=== PATIENT | male | born 1945 | race Two or more races ===

== ENCOUNTER 2018-03-28 21:37 | Inpatient (IN) | payer MEDICARE, OTHER ==
[~2018-03-28] VITALS: Ht 165.1 cm; Wt 64.4 kg
[~2018-03-28 21:37] MED LIST: AMLO10TA2 PO; ASPI-495 PO; ATOR80TA PO; CARV25TA2 PO; FURO-144 PO; HYDR100T27 PO; INSU100V27 SQ; ISOS30TA7 PO; LORA10TA7 PO; LOSA25TA3 PO
[2018-03-28] MEDS ORDERED: IV NS 0.9% 1,000 ML BAG IV ONE (22:00)
[2018-03-28 22:23] LABS: BASOPHILS % (AUTO) 0.1 % (0.0-2.0); HEMATOCRIT 45 % (39-51); LYMPHOCYTES # (AUTO) 0.4 /CMM (0.8-4.8); LYMPHOCYTES % (AUTO) 6.9 % (20.0-44.0); MEAN CORPUSCULAR HEMOGLOBIN 30 PG (26.0-33.0); MEAN CORPUSCULAR HGB CONC 33 g/dl (31.0-36.0); MEAN CORPUSCULAR VOLUME 91 fL (80-96); MONOCYTES # (AUTO) 0.1 /CMM (0.1-1.30); MONOCYTES % (AUTO) 1.7 % (2.0-12.0); NEUTROPHILS # (AUTO) 5.1 /CMM (1.8-8.9); NEUTROPHILS % (AUTO) 91.3 % (43.0-81.0); PLATELET COUNT (AUTO) 210 /CMM (150-450); RDW COEFFICIENT OF VARIATION 14.1 (11.5-15.0); RED BLOOD CELL COUNT(AUTO) 4.99 MIL/uL (4.5-6.0); WHITE BLOOD COUNT (AUTO) 5.6 K/uL (4.3-11.0)
[2018-03-28 22:39] LABS: ALANINE AMINOTRANSFERASE 86 U/L (12-78); ALBUMIN 4.6 g/dL (3.4-5.0); ALKALINE PHOSPHATASE 125 U/L (46-116); ASPARTATE AMINOTRANSFERASE 50 U/L (15-37); BILIRUBIN,DIRECT 0.2 mg/dL (0.0-0.2); BILIRUBIN,TOTAL 0.9 mg/dL (0.2-1.0); CALCIUM, SERUM 9.5 mg/dL (8.5-10.1); CARBON DIOXIDE 26 mmol/L (21-32); CHLORIDE 97 mmol/L (98-107); CREATININE 2.1 mg/dL (0.6-1.3); POTASSIUM 4.2 mmol/L (3.5-5.1); SODIUM SERUM 134 mmol/L (136-145); TOTAL PROTEIN, SERUM 9.5 g/dL (6.4-8.2); UREA NITROGEN, BLOOD 46 mg/dL (7-18)
[2018-03-28 22:40] LABS: GLUCOSE 393 mg/dL (74-106)
--- NOTE | 2018-03-28 22:40 | NUR ---
BBRA; "PER FAMILY, NOT EATING WELL THE PAST FEW DAYS, FEELING ILL NOW". PT STABLE, DENIES CP, SOB, DIZZINESS, [place], N/V, CHILLS @ THIS TIME. PT C/O ABD PAIN 01/06, JUNO WELL NOW. PT ON TELE, NSR. PT RESTING COMFORTABLY & WILL CONT TO MONITOR.
[2018-03-28 22:41] LABS: TROPONIN I < 0.017 ng/mL (0.00-0.056)
[2018-03-28] MEDS ORDERED: ONDANSETRON HCL/PF - ER 4 MG/2 ML VIAL IV ONE (23:00)
[2018-03-28] MEDS ORDERED: INSULIN REGULAR, HUMAN 100 UNIT/ML 10 ML VIAL IV ONE (23:00)
[2018-03-28] MEDS ORDERED: ONDANSETRON HCL/PF 4 MG/2 ML VIAL ONE (23:12)
[2018-03-28] MEDS ORDERED: INSULIN REGULAR, HUMAN 100 UNIT/ML 10 ML VIAL ONE (23:14)
--- NOTE | 2018-03-28 23:28 | NUR ---
PT EVAL'D BY DR. MCKEON. MEDICATED PER MD. PT RESTING COMFORTBLY, NO RESP DISTRESS NOTED @ THIS TIME. WILL CONT TO MONITOR.
--- NOTE | 2018-03-28 23:50 | NUR ---
RECEIVED REPORT FROM MALLORY ZARAGOZA.
[2018-03-28 23:52] LABS: APPEARANCE,URINE CLEAR (CLEAR); BILIRUBIN,URINE NEGATIVE (NEGATIVE); BLOOD, URINE TRACE-INTA Ery/uL (NEGATIVE); COLOR,URINE YELLOW (YELLOW); KETONES,URINE TRACE (NEGATIVE); LEUKOCYTE ESTERASE ,URINE NEGATIVE (NEGATIVE); NITRITE, URINE NEGATIVE (NEGATIVE); PROTEIN,URINE 2+ mg/dl (NEGATIVE); UGLUCOSE 3+ mg/dL (NEGATIVE); UROBILINOGEN,URINE 0.2 EU/dL (0.2)
--- NOTE | 2018-03-28 23:55 | NUR ---
Patient is resting comfortably in bed with eyes closed. Easily aroused. STABLE CONDITION. SAFETY MEASURES IN PLACE. CALL LIGHT WITHIN REACH.
[2018-03-29] VITALS (9 sets, daily range): BP systolic 117–187; BP diastolic 62–90
[2018-03-29 00:02] LABS: BACTERIA,URINE Rare /HPF (None Seen); SQUAMOUS EPITHELIAL CELL,UR Rare /HPF (None Seen)
--- NOTE | 2018-03-29 00:33 | NUR ---
LAB AT BEDSIDE FOR TROPONIN DRAW. TECH AT BEDSIDE FOR BLOOD SUGAR CHECK
[2018-03-29] MEDS ORDERED: IV NS 0.9% 1,000 ML IV PRN (01:33)
[2018-03-29] MEDS ORDERED: NITROGLYCERIN PACKET 1 GM PACKET ONE (01:43)
[2018-03-29] MEDS ORDERED: ASPIRIN 81 MG TAB.CHEW ONE (01:43)
[2018-03-29] MEDS ORDERED: NITROGLYCERIN 0.4 MG/TAB BOTTLE ONE (01:43)
--- NOTE | 2018-03-29 01:46 | NUR ---
REPORT GIVEN TO MARISSA CEJA.
[2018-03-29] MEDS ORDERED: MORPHINE SULFATE INJ 2 MG/ML DISP.SYRIN IV PRN (02:00)
[2018-03-29] MEDS ORDERED: NITROGLYCERIN PACKET 1 GM PACKET TD ONE (02:00)
[2018-03-29] MEDS ORDERED: NITROGLYCERIN 0.4 MG/TAB BOTTLE SL PRN (02:00)
[2018-03-29] MEDS ORDERED: MAG HYDROX/AL HYDROX/SIMETH 30 ML UDC PO PRN (02:00)
[2018-03-29] MEDS ORDERED: ASPIRIN 81 MG TAB.CHEW PO ONE (02:00)
[2018-03-29] MEDS ORDERED: DEXTROSE 50%-WATER 50 ML DISP.SYRIN IV PRN (02:00)
[2018-03-29] MEDS ORDERED: Z GUARD REMEDY 2 OZ OINT TP PRN (02:00)
[2018-03-29] MEDS ORDERED: ACETAMINOPHEN 325 MG TABLET PO PRN (02:00)
--- NOTE | 2018-03-29 02:30 | NUR ---
recieved from the er a/ox4 palestinian speaking Le the corrections sergeant at the bedside and able to interpret for me. pt is smiling and cooperative. denies pain.
--- NOTE | 2018-03-29 02:48 | NUR ---
TRANSP TO MED/SURG STABLE CONDITION. NAD
[2018-03-29] MEDS: BLOOD SUGAR DIAGNOSTIC 1 EACH STRIP IN SCH ×4 (06:37→22:37)
[2018-03-29] MEDS: INSULIN REGULAR, HUMAN 100 UNIT/ML 3 ML VIAL SQ PRN ×2 (06:42→12:39)
[2018-03-29 07:24] LABS: HEMATOCRIT 41 % (39-51); HEMOGLOBIN 13.6 g/dL (13.5-17.5); LYMPHOCYTES # (AUTO) 0.4 /CMM (0.8-4.8); LYMPHOCYTES % (AUTO) 6.7 % (20.0-44.0); MEAN CORPUSCULAR HEMOGLOBIN 30 PG (26.0-33.0); MEAN CORPUSCULAR HGB CONC 33 g/dl (31.0-36.0); MEAN CORPUSCULAR VOLUME 90 fL (80-96); MONOCYTES # (AUTO) 0.2 /CMM (0.1-1.30); MONOCYTES % (AUTO) 2.9 % (2.0-12.0); NEUTROPHILS # (AUTO) 5.1 /CMM (1.8-8.9); NEUTROPHILS % (AUTO) 90.4 % (43.0-81.0); PLATELET COUNT (AUTO) 217 /CMM (150-450); RDW COEFFICIENT OF VARIATION 14.1 (11.5-15.0); RED BLOOD CELL COUNT(AUTO) 4.55 MIL/uL (4.5-6.0); WHITE BLOOD COUNT (AUTO) 5.6 K/uL (4.3-11.0)
--- NOTE | 2018-03-29 07:37 | NUR ---
RN OPENING NOTES RECEIVED PATIENT IN BED RESTING, AWAKE, A/OX3, TANZANIAN SPEAKING BUT ABLE TO UNDERSTAND BASIC SWEDISH. TOLERATING ROOM AIR, SPO2 96%. NO ACUTE DISTRESS, NO SOB, DENIED PAIN OR DISCOMFORT. ON TELEMONITORING, SR WITH BBB, HR 82. IV SITE INTACT AND PATENT, IVF INFUSING AT 50 ML/HR. KEPT PATIENT SAFE AND COMFORTABLE. BED IN LOW/LOCKED POSITION, SIDERAILS UPX2, CALL LIGHT IN REACH. WILL CONTINUE TO MONITOR ACCORDINGLY. Addendum: 03/29/18 at 0754 by DAWN CHOI BED ALARM ON FOR SAFETY
[2018-03-29 07:40] LABS: ALANINE AMINOTRANSFERASE 75 U/L (12-78); ALKALINE PHOSPHATASE 111 U/L (46-116); ASPARTATE AMINOTRANSFERASE 46 U/L (15-37); BILIRUBIN,DIRECT 0.1 mg/dL (0.0-0.2); BILIRUBIN,TOTAL 0.6 mg/dL (0.2-1.0); CALCIUM, SERUM 8.5 mg/dL (8.5-10.1); CARBON DIOXIDE 24 mmol/L (21-32); CHLORIDE 101 mmol/L (98-107); CREATININE 1.7 mg/dL (0.6-1.3); GLUCOSE 312 mg/dL (74-106); MAGNESIUM 2.1 mg/dL (1.8-2.4); PHOSPHORUS 3.6 mg/dL (2.5-4.9); POTASSIUM 3.8 mmol/L (3.5-5.1); SODIUM SERUM 140 mmol/L (136-145); TOTAL PROTEIN, SERUM 8.4 g/dL (6.4-8.2); UREA NITROGEN, BLOOD 43 mg/dL (7-18)
[2018-03-29 07:42] LABS: CHOLESTEROL 279 mg/dL (<200); HDL CHOLESTEROL 40 mg/dL (40-60); LDL 187 mg/dL (0-99); THYROID STIMULATING HORMONE 0.763 uIU/mL (0.358-3.74); TRIGLYCERIDES 148 mg/dL (30-150)
--- NOTE | 2018-03-29 08:30 | NUR ---
RN NOTES NOTIFIED DR YUNG FOR CRITICAL RESULT OF TROPONIN= 0.729
[2018-03-29] MEDS: AMLODIPINE BESYLATE 10 MG TABLET PO SCH (08:51)
[2018-03-29] MEDS: LORATADINE 10 MG TABLET PO SCH (08:52)
[2018-03-29] MEDS: LOSARTAN POTASSIUM 25 MG TABLET PO SCH (08:52)
[2018-03-29] MEDS: ISOSORBIDE MONONITRATE (30MG) 30 MG TAB.SR.24H PO SCH (08:52)
[2018-03-29] MEDS: ASPIRIN EC 81 MG TABLET.DR PO SCH (08:52)
[2018-03-29] MEDS: CARVEDILOL 12.5 MG TABLET PO SCH ×2 (08:53→21:08)
[2018-03-29] MEDS: hydrALAZINE HCL 50 MG TABLET PO SCH ×3 (08:54→17:00)
[2018-03-29] MEDS: ATORVASTATIN 40 MG TABLET PO SCH (08:55)
[2018-03-29] MEDS: ONDANSETRON HCL/PF 4 MG/2 ML VIAL IVP PRN (09:30)
[2018-03-29] MEDS: INSULIN ASPART/LISPRO 100 UNIT/ML CARTRIDGE SQ SCH ×3 (10:02→17:10)
[2018-03-29] MEDS: ENOXAPARIN SODIUM 30 MG/0.3 ML DISP.SYRIN SQ SCH (11:11)
[2018-03-29 11:17] LABS: MAGNESIUM 2.1 mg/dL (1.8-2.4)
[2018-03-29 11:28] LABS: THYROID STIMULATING HORMONE 0.787 uIU/mL (0.358-3.74)
[2018-03-29] MEDS: IV NS 0.9% 1,000 ML IV PRN ×2 (12:33→16:01)
--- NOTE | 2018-03-29 19:30 | NUR ---
RN CLOSING NOTES PATIENT IN STABLE CONDITION. ALL NEEDS ATTENDED AND PROVIDED. ALL DUE MEDS GIVEN ORDERED. NS IVF FLUIDS INFUSING AT 125ML/HR ORDERED. KEPT PATIENT SAFE AND COMFORTABLE. BED IN LOW/LOCKED POSITION, SIDERAILS UPX2, SEMIFOWLERS POSITION, BED ALARM ON FOR SAFETY, CALL LIGHT IN REACH. ENDORSED TO NIGHT RN FOR YUDITH.
[2018-03-30] VITALS (7 sets, daily range): BP systolic 96–176; BP diastolic 54–86
[2018-03-30] MEDS: IV NS 0.9% 1,000 ML IV PRN ×2 (01:46→16:21)
[2018-03-30] MEDS: BLOOD SUGAR DIAGNOSTIC 1 EACH STRIP IN SCH ×4 (06:43→21:30)
[2018-03-30] MEDS: INSULIN ASPART/LISPRO 100 UNIT/ML CARTRIDGE SQ SCH ×3 (06:43→13:31)
--- NOTE | 2018-03-30 06:44 | NUR ---
RN NOTES PATIENT WITH BLOOD SUGAR OF 211. HELD INSULIN DOSE DUE TO PATIENT WITH POOR APETITE.
[2018-03-30 07:00] LABS: EOSINOPHILS % (AUTO) 0.2 % (0.0-6.0); HEMATOCRIT 41 % (39-51); HEMOGLOBIN 13.7 g/dL (13.5-17.5); LYMPHOCYTES # (AUTO) 0.6 /CMM (0.8-4.8); LYMPHOCYTES % (AUTO) 6.3 % (20.0-44.0); MEAN CORPUSCULAR HEMOGLOBIN 30 PG (26.0-33.0); MEAN CORPUSCULAR HGB CONC 33 g/dl (31.0-36.0); MEAN CORPUSCULAR VOLUME 90 fL (80-96); MONOCYTES # (AUTO) 0.3 /CMM (0.1-1.30); MONOCYTES % (AUTO) 3.5 % (2.0-12.0); NEUTROPHILS # (AUTO) 8.4 /CMM (1.8-8.9); PLATELET COUNT (AUTO) 208 /CMM (150-450); RED BLOOD CELL COUNT(AUTO) 4.55 MIL/uL (4.5-6.0); WHITE BLOOD COUNT (AUTO) 9.3 K/uL (4.3-11.0)
[2018-03-30 07:21] LABS: TROPONIN I 0.339 ng/mL (0.00-0.056)
[2018-03-30 07:24] LABS: ALANINE AMINOTRANSFERASE 78 U/L (12-78); ALBUMIN 3.9 g/dL (3.4-5.0); ALKALINE PHOSPHATASE 101 U/L (46-116); ASPARTATE AMINOTRANSFERASE 39 U/L (15-37); BILIRUBIN,TOTAL 0.7 mg/dL (0.2-1.0); CALCIUM, SERUM 8.4 mg/dL (8.5-10.1); CARBON DIOXIDE 24 mmol/L (21-32); CHLORIDE 107 mmol/L (98-107); CREATININE 1.9 mg/dL (0.6-1.3); GLUCOSE 224 mg/dL (74-106); MAGNESIUM 2.4 mg/dL (1.8-2.4); PHOSPHORUS 3.6 mg/dL (2.5-4.9); POTASSIUM 3.6 mmol/L (3.5-5.1); SODIUM SERUM 143 mmol/L (136-145); UREA NITROGEN, BLOOD 62 mg/dL (7-18)
--- NOTE | 2018-03-30 08:04 | NUR ---
TELE RM OPENING NOTES RECEIVED PT FROM NIGHTSHIFT NURSE IN STABLE CONDITION. PT IS A/O X3. NO SOB OR SIGNS OF DISTRESS NOTED. BREATHING IS EVEN AND UNLABORED. HE DENIES ANY CHEST PAIN AT THIS TIME. PT IS SR ON THE TELE MONITOR WITH BBB. IV TO LEFT HAND NOTED TO BE PATENT AND INTACT. PT TOLERATING NS INFUSION WELL. BED IN LOW LOCKED POSITION, SIDE RAILS UP X2, CALL LIGHT WITHIN REACH. WILL CONTINUE TO MONITOR
[2018-03-30] MEDS: ENOXAPARIN SODIUM 30 MG/0.3 ML DISP.SYRIN SQ SCH (08:28)
[2018-03-30] MEDS: ONDANSETRON HCL/PF 4 MG/2 ML VIAL IVP PRN (08:32)
[2018-03-30] MEDS: LOSARTAN POTASSIUM 25 MG TABLET PO SCH (08:35)
[2018-03-30] MEDS: hydrALAZINE HCL 50 MG TABLET PO SCH ×3 (08:35→17:00)
[2018-03-30] MEDS: ASPIRIN EC 81 MG TABLET.DR PO SCH (08:36)
[2018-03-30] MEDS: ISOSORBIDE MONONITRATE (30MG) 30 MG TAB.SR.24H PO SCH (08:36)
[2018-03-30] MEDS: ATORVASTATIN 40 MG TABLET PO SCH (08:36)
[2018-03-30] MEDS: CARVEDILOL 12.5 MG TABLET PO SCH ×2 (08:36→21:30)
[2018-03-30] MEDS: AMLODIPINE BESYLATE 10 MG TABLET PO SCH (08:36)
[2018-03-30] MEDS: LORATADINE 10 MG TABLET PO SCH (08:37)
[2018-03-30] MEDS: HYDROCODONE/APAP 5/325MG 1 EACH TABLET PO PRN (13:33)
[2018-03-30] MEDS: INSULIN REGULAR, HUMAN 100 UNIT/ML 3 ML VIAL SQ PRN ×2 (13:40→21:35)
[2018-03-30] MEDS: NIFEdipine XL (30MG) 30 MG TAB PO SCH (17:00)
--- NOTE | 2018-03-30 18:48 | NUR ---
MS RN CLOSING NOTES PT REMAINS STABLE. ALL NEEDS MET DURING SHIFT AND ORDERS CARRIED OUT ACCORDINGLY. ALL DUE MEDS GIVEN. VITALS REMAIN STABLE PT CONTINUES TO TOLERATE NS IN FUSION WELL. WILL ENDORSE TO NIGHTSHIFT NURSE FOR YUDITH
--- NOTE | 2018-03-30 20:12 | NUR ---
MS PR INTERN INITIAL NOTES RECEIVED PT IN BED RESTING WITH EYES CLOSED BUT AROUSE TO TOUCH, DENIES ANY PAIN OR ANY DISCOMFORT. WITH IVF OF NS AT 125 ML/HR AT THIS TIME. AWARE WHERE HE AT AND HOW TO USED THE CALL LIGHT SYSTEM. KEPT HIM WARM AND COMFORTABLE AT ALL TIMES. PLACE CALL LIGHT AT REACH. FAMILY AT THE BEDSIDE. WILL CONTINUE MONITORING.
[2018-03-30] MEDS: MAGNESIUM HYDROXIDE 30 ML UDC PO PRN (21:37)
--- NOTE | 2018-03-30 21:40 | NUR ---
ms manager of revenue notes blood sugar 155 , 2 units of insulin given as ordered, no signs of hyper glycemia noted. routine meds given and MOM as well. pt tolerated well. pt still on IVF NS infusing at this time. snacks also served. will continue monitoring.
--- NOTE | 2018-03-31 | NUR ---
emergency generator mechanic notes pt sleeping comfortably in bed without any acute distress noted. respiration even and non-labored. will continue monitoring. place call light at reach.
[2018-03-31] MEDS: IV NS 0.9% 1,000 ML IV PRN ×2 (00:29→12:23)
[2018-03-31] MEDS: HYDROCODONE/APAP 5/325MG 1 EACH TABLET PO PRN (03:36)
--- NOTE | 2018-03-31 03:36 | NUR ---
ms lin notes c/o abdominal pain norco tablet given, bowel sounds present but still no bowel movement. kept him comfortable and safe at all times. will re- assess later.
--- NOTE | 2018-03-31 05:06 | NUR ---
ms lin notes re-assessment checked pt he's resting comfortably in bed without any acute distress/discomfort noted.
[2018-03-31] MEDS: BLOOD SUGAR DIAGNOSTIC 1 EACH STRIP IN SCH ×4 (06:17→21:43)
[2018-03-31] MEDS: INSULIN REGULAR, HUMAN 100 UNIT/ML 3 ML VIAL SQ PRN ×2 (06:26→21:52)
--- NOTE | 2018-03-31 06:58 | NUR ---
MS FARMWORKER FIELD CROP CLOSING NOTES PT WOKE UP, BLOOD SUGAR CHECKED DONE, 194, 3UNITS OF INSULIN GIVEN HANNAH SQ ORDERED. NO SIGNS OF HYPER GLYCEMIA NOTED. DENIES ANY PAIN OR ANY DISCOMFORT. STILL NO BOWEL MOVEMENT. ALL DUE MEDS GIVEN AND ALL NEEDS MET. KEPT HIM WARM AND COMFORTABLE AT ALL TIMES. BED ALARM SET FOR SAFETY PLACE CALL LIGHT AT REACH.
[2018-03-31 07:35] LABS: BASOPHILS % (AUTO) 0.2 % (0.0-2.0); EOSINOPHILS % (AUTO) 0.2 % (0.0-6.0); HEMATOCRIT 42 % (39-51); HEMOGLOBIN 13.9 g/dL (13.5-17.5); LYMPHOCYTES # (AUTO) 0.7 /CMM (0.8-4.8); LYMPHOCYTES % (AUTO) 8.9 % (20.0-44.0); MEAN CORPUSCULAR HEMOGLOBIN 30 PG (26.0-33.0); MEAN CORPUSCULAR HGB CONC 33 g/dl (31.0-36.0); MEAN CORPUSCULAR VOLUME 90 fL (80-96); MONOCYTES # (AUTO) 0.5 /CMM (0.1-1.30); MONOCYTES % (AUTO) 6.1 % (2.0-12.0); NEUTROPHILS # (AUTO) 6.7 /CMM (1.8-8.9); NEUTROPHILS % (AUTO) 84.6 % (43.0-81.0); PLATELET COUNT (AUTO) 204 /CMM (150-450); RDW COEFFICIENT OF VARIATION 13.7 (11.5-15.0); RED BLOOD CELL COUNT(AUTO) 4.63 MIL/uL (4.5-6.0); WHITE BLOOD COUNT (AUTO) 7.9 K/uL (4.3-11.0)
[2018-03-31 07:54] LABS: TROPONIN I 0.168 ng/mL (0.00-0.056)
[2018-03-31 07:57] LABS: ALANINE AMINOTRANSFERASE 61 U/L (12-78); ALBUMIN 3.6 g/dL (3.4-5.0); ALKALINE PHOSPHATASE 93 U/L (46-116); ASPARTATE AMINOTRANSFERASE 40 U/L (15-37); BILIRUBIN,TOTAL 0.7 mg/dL (0.2-1.0); CALCIUM, SERUM 8.3 mg/dL (8.5-10.1); CARBON DIOXIDE 24 mmol/L (21-32); CHLORIDE 106 mmol/L (98-107); CREATININE 1.4 mg/dL (0.6-1.3); GLUCOSE 207 mg/dL (74-106); MAGNESIUM 2.4 mg/dL (1.8-2.4); PHOSPHORUS 2.5 mg/dL (2.5-4.9); POTASSIUM 3.3 mmol/L (3.5-5.1); SODIUM SERUM 142 mmol/L (136-145); TOTAL PROTEIN, SERUM 7.7 g/dL (6.4-8.2); UREA NITROGEN, BLOOD 42 mg/dL (7-18)
--- NOTE | 2018-03-31 07:58 | NUR ---
MS RN OPENING NOTES RECEIVED PT FROM NIGHTSHIFT NURSE IN STABLE CONDITION. PT IS A/O X3. NO SOB OR SIGNS OF DISTRESS NOTED. BREATHING IS EVEN AND UNLABORED. HE DENIES ANY CHEST PAIN AT THIS TIME. IV TO LEFT HAND NOTED TO BE PATENT AND INTACT. PT TOLERATING NS INFUSION WELL. BED IN LOW LOCKED POSITION, SIDE RAILS UP X2, CALL LIGHT WITHIN REACH. WILL CONTINUE TO MONITOR
[2018-03-31 08:00] VITALS: BP 163/70
[2018-03-31] MEDS: INSULIN ASPART/LISPRO 100 UNIT/ML CARTRIDGE SQ SCH ×3 (08:32→17:22)
[2018-03-31] MEDS: ENOXAPARIN SODIUM 30 MG/0.3 ML DISP.SYRIN SQ SCH (08:33)
[2018-03-31] MEDS: NIFEdipine XL (30MG) 30 MG TAB PO SCH ×2 (08:39→17:39)
[2018-03-31] MEDS: ASPIRIN EC 81 MG TABLET.DR PO SCH (08:39)
[2018-03-31] MEDS: CARVEDILOL 12.5 MG TABLET PO SCH ×2 (08:40→20:31)
[2018-03-31] MEDS: LORATADINE 10 MG TABLET PO SCH (08:40)
[2018-03-31] MEDS: ATORVASTATIN 40 MG TABLET PO SCH (08:40)
[2018-03-31] MEDS: ISOSORBIDE MONONITRATE (30MG) 30 MG TAB.SR.24H PO SCH (09:00)
[2018-03-31] MEDS: hydrALAZINE HCL 50 MG TABLET PO SCH ×3 (09:00→17:00)
[2018-03-31] MEDS ORDERED: POTASSIUM CHLORIDE 20 MEQ TAB.PRT.SR PO ONE (10:30)
--- NOTE | 2018-03-31 12:00 | NUR ---
MS RN NOTES: 1200 BS PT'S 1200 BLOOD SUGAR WAS 199. FAST ACTING INSULIN NOT ADMINISTERED PT DOES NOT WANT TO EAT
[2018-03-31 16:00] VITALS: BP 130/70
--- NOTE | 2018-03-31 18:47 | NUR ---
MS RN CLOSING NOTES PT REMAINS STABLE. ALL NEEDS MET DURING SHIFT AND ORDERS CARRIED OUT ACCORDINGLY. ALL DUE MEDS GIVEN. VITALS REMAIN STABLE. PT CONTINUES TO TOLERATE NS IN FUSION WELL. IV TO RIGHT FA REMAINS PATENT AND INTACT. PT INSTRUCTED THAT HE WILL BE NPO POST MIDNIGHT FOR AM STRESS TEST. HE VERBALIZED UNDERSTANDING. CONSENT OBTAINED AND PLACED IN PT'S CHART. WILL ENDORSE TO NIGHTSHIFT NURSE FOR YUDITH
--- NOTE | 2018-03-31 19:30 | NUR ---
MS TELEVISION NEWS ANCHOR INITIAL NOTES RECEIVED REPORT FROM AM NURSE AFSATU, HE'S ON BED WITH IVF OF NS AT 75ML/HR INFUSING ON HIS RIGHT FOREARM PATENT AND INTACT. RESPIRATION EVEN AND NON-LABORED, NOT IN ANY DISCOMFORT.ABDOMEN SOFT AND BOWEL SOUNDS PRESENT, STILL NO BOWEL MOVEMENT EVEN HE TOOK PRUNE JUICE AND MOM LAST NIGHT. DENIES ANY PAIN OR ANY DISCOMFORT. ENCOURAGE HIM TO USED THE CALL LIGHT SYSTEM IF HE NEEDS SOME HELPED. KEPT HIM WARM AND COMFORTABLE AT ALL TIMES. PLACE CALL LIGHT AT REACH. BED ALARM SET FOR SAFETY.
[2018-03-31 20:00] VITALS: BP 139/61
[2018-03-31] MEDS: MAGNESIUM HYDROXIDE 30 ML UDC PO PRN (20:31)
--- NOTE | 2018-03-31 21:35 | NUR ---
MS HEALTH COMMISSIONER NOTES BLOOD SUGAR 204, LANTUS 13 UNITS GIVEN HANNAH SQ WELL REGULAR INSULIN 4 UNITS, NO SIGNS OF HYPER GLYCEMIA NOTED. SNACKS ASLO SERVED. PT STILL ON IVF NS AT 75ML/HR. KEPT HIM WARM AND COMFORTABLE AT ALL TIMES. WILL CONTINUE TO MONITOR.
[2018-03-31] MEDS ORDERED: INSULIN GLARGINE, 100 UNIT/ML CARTRIDGE SQ SCH (22:00)
[2018-04-01] MEDS: HYDROCODONE/APAP 5/325MG 1 EACH TABLET PO PRN (00:10)
--- NOTE | 2018-04-01 00:17 | NUR ---
MS ALON NOTES C/O ABDOMINAL PAIN NO N/V NOTED , NORCO TABLET GIVEN WITH SIP OF WATER ORDERED. PT NPO FOR STRESS TEST IN AM . PATIENT AWARE AND UNDERSTOOD WELL. IVF STILL INFUSING AND KEPT HIM WARM AND COMFORTABLE AT ALL TIMES. PLACE CALL LIGHT AT REACH. WILL CONTINUE MONITORING.
[2018-04-01] MEDS: IV NS 0.9% 1,000 ML IV PRN (04:01)
[2018-04-01] MEDS: ONDANSETRON HCL/PF 4 MG/2 ML VIAL IVP PRN (04:19)
[2018-04-01] MEDS: BLOOD SUGAR DIAGNOSTIC 1 EACH STRIP IN SCH ×2 (06:24→12:21)
--- NOTE | 2018-04-01 06:51 | NUR ---
MS GROUP ART SUPERVISOR CLOSING NOTES PT RESTING COMFORTABLY IN BED WITHOUT ANY ACUTE DISTRESS NOTED. IVF NS AT 75ML/HR INFUSING AT THIS TIME ON HIS RIGHT FOREARM PATENT AND INTACT. PT NPO AT THIS TIME FOR HIS PROCEDURE. BLOOD SUGAR CHECKED DONE 186 NO INSULIN GIVEN BECAUSE PT NPO. KEPT HIM WARM AND COMFORTABLE AT ALL TIMES. BED ALARM SET FOR PT SAFETY. PLACE CALL LIGHT AT REACH.
[2018-04-01 07:03] LABS: BASOPHILS % (AUTO) 0.3 % (0.0-2.0); HEMATOCRIT 40 % (39-51); HEMOGLOBIN 13.3 g/dL (13.5-17.5); LYMPHOCYTES # (AUTO) 0.7 /CMM (0.8-4.8); LYMPHOCYTES % (AUTO) 11.3 % (20.0-44.0); MEAN CORPUSCULAR HEMOGLOBIN 30 PG (26.0-33.0); MEAN CORPUSCULAR HGB CONC 34 g/dl (31.0-36.0); MEAN CORPUSCULAR VOLUME 89 fL (80-96); MONOCYTES # (AUTO) 0.5 /CMM (0.1-1.30); MONOCYTES % (AUTO) 9.4 % (2.0-12.0); NEUTROPHILS # (AUTO) 4.6 /CMM (1.8-8.9); PLATELET COUNT (AUTO) 192 /CMM (150-450); RDW COEFFICIENT OF VARIATION 13.8 (11.5-15.0); RED BLOOD CELL COUNT(AUTO) 4.44 MIL/uL (4.5-6.0); WHITE BLOOD COUNT (AUTO) 5.8 K/uL (4.3-11.0)
--- NOTE | 2018-04-01 07:15 | NUR ---
RN MS NOTES PATIENT A/OX3, BREATHING EVEN AND UNLABORED, NO DISTRESS NOTED, KEPT PATIENT NPO FOR [place] STRESS TEST, CONSENTS SIGNED AND PLACED IN CHART, RFA PATENT AND INTACT, NS RUNNING AT 75ML/HR, NO S/SX OF HYPO OR HYPERGLYCEMIA NOTED AT THIS TIME. KEPT PATIENT COMFORTABLE, NEEDS ATTENDED, CALL LIGHT WITHIN REACH, WILL CONTINUE TO MONITOR.
[2018-04-01 07:54] LABS: ALANINE AMINOTRANSFERASE 46 U/L (12-78); ALBUMIN 3.3 g/dL (3.4-5.0); ALKALINE PHOSPHATASE 88 U/L (46-116); ASPARTATE AMINOTRANSFERASE 27 U/L (15-37); BILIRUBIN,TOTAL 0.5 mg/dL (0.2-1.0); CALCIUM, SERUM 8.1 mg/dL (8.5-10.1); CARBON DIOXIDE 26 mmol/L (21-32); CHLORIDE 106 mmol/L (98-107); CREATININE 1.3 mg/dL (0.6-1.3); GLUCOSE 207 mg/dL (74-106); MAGNESIUM 2.5 mg/dL (1.8-2.4); PHOSPHORUS 2.6 mg/dL (2.5-4.9); POTASSIUM 3.5 mmol/L (3.5-5.1); SODIUM SERUM 139 mmol/L (136-145); TOTAL PROTEIN, SERUM 7.1 g/dL (6.4-8.2); UREA NITROGEN, BLOOD 38 mg/dL (7-18)
[2018-04-01 08:00] VITALS: BP 158/74
[2018-04-01] MEDS ORDERED: REGADENOSON 0.4 MG/5 ML DISP.SYRIN IVP ONE (08:00)
[2018-04-01] MEDS: INSULIN ASPART/LISPRO 100 UNIT/ML CARTRIDGE SQ SCH ×2 (09:36→13:00)
[2018-04-01] MEDS: hydrALAZINE HCL 50 MG TABLET PO SCH ×2 (09:37→13:00)
[2018-04-01] MEDS: ISOSORBIDE MONONITRATE (30MG) 30 MG TAB.SR.24H PO SCH (09:37)
[2018-04-01] MEDS ORDERED: Insulin Glargine,Hum SQ (09:38)
[2018-04-01] MEDS: CARVEDILOL 12.5 MG TABLET PO SCH (09:38)
[2018-04-01] MEDS: LORATADINE 10 MG TABLET PO SCH (09:38)
[2018-04-01] MEDS: ATORVASTATIN 40 MG TABLET PO SCH (09:38)
[2018-04-01] MEDS: ASPIRIN EC 81 MG TABLET.DR PO SCH (09:38)
[2018-04-01] MEDS: NIFEdipine XL (30MG) 30 MG TAB PO SCH (09:38)
[2018-04-01] MEDS: ENOXAPARIN SODIUM 30 MG/0.3 ML DISP.SYRIN SQ SCH (09:45)
--- NOTE | 2018-04-01 12:43 | NUR ---
RN NOTES BS RESULT IS 140, PATIENT REFUSING TO EAT AT THIS TIME, INSULIN HELD. RECEIVED ORDER FROM DR. YUNG THAT PATIENT CAN BE DISCHARGED TODAY. PATIENT MADE AWARE.
[2018-04-01 16:00] VITALS: BP 103/52
--- NOTE | 2018-04-01 17:15 | NUR ---
MANAGER LATIN PATIENT A/OX3, GRANDDAUGHTER JAGUAR CAME, RECEIVED DISCHARGE INSTRUCTIONS AND VERBALIZED UNDERSTANDING, PAPERWORKS SIGNED, PIV REMOVED AND COVERED WITH GAUZE AND TAPE, BELONGINGS RECONCILED AND COMPLETE, PATIENT'S SKIN CLEAR AND INTACT. ENGINE TURNER ASSISTED PATIENT WITH CHANGING OF CLOTHES, NEEDS ATTENDED. SKIN CARE RENDERED. REQUESTED WALKER FROM [employer], INSTRUCTED GRANDDAUGHTER TO WAIT FOR THE WALKER TO BE DELIVERED AND VERBALIZED UNDERSTANDING. BUT PER ENGINE TURNER, PATIENT AND GRANDDAUGHTER DIDN'T WAIT FOR THE WALKER AND LEFT THE FACILITY, ENGINE TURNER ACCOMPANIED THE PATIENT TO THE CAR VIA WHEELCHAIR.
== END 2018-04-01 17:15 | disposition home or self-care (01) | DRG 280 ==
LOC: ER 21:38 → TELE 03-29 01:37 → MED 03-30 10:19
PROVIDERS: ADMIT Nurse Practitioner Acute Care; ATTEND Nurse Practitioner Acute Care
DX: I21.A1 Myocardial infarction type 2 (principal); N17.0 Acute kidney failure with tubular necrosis; K72.00 Acute and subacute hepatic failure without coma; E87.1 Hypo-osmolality and hyponatremia; I10 Essential (primary) hypertension; I25.10 Atherosclerotic heart disease of native coronary artery without angina pectoris; E86.0 Dehydration; E11.65 Type 2 diabetes mellitus with hyperglycemia; Z95.0 Presence of cardiac pacemaker; Z79.4 Long term (current) use of insulin; Z79.82 Long term (current) use of aspirin; Z79.899 Other long term (current) drug therapy
CPT/HCPCS: 36415; 71045-TC; 80048-TC; 80053-TC; 80061-TC; 80076-TC; 81000-TC; 82306; 82962-TC; 83605-TC; 83735-TC; 84100-TC; 84439-TC; 84443-TC; 84484-TC; 85025-TC; 85730-TC; 87040-TC; 87081-TC; 87086-TC; 93307-TC; 97110-TC; 97116-TC; 97530-TC; A4606; A9502; J1650; J1815; J2405; J2785; J7030; Z7610